=== PATIENT | female | born 1985 | race Asian ===

== ENCOUNTER 2017-08-08 01:10 | Inpatient (IN) | payer SELFPAY ==
[~2017-08-08] VITALS: Ht 160 cm; Wt 63.5 kg
[2017-08-08] MEDS: LR 1,000 ML IV SCH ×4 (01:40→22:10)
[2017-08-08] MEDS ORDERED: CEFAZOLIN 2 GM IVPB PREMIX 50 ML IV ONE (02:00)
[2017-08-08 02:30] LABS: BASOPHILS % (AUTO) 0.3 % (0.0-2.0); EOSINOPHILS % (AUTO) 0.5 % (0.0-4.0); HEMATOCRIT 37.7 % (36-48); HEMOGLOBIN 12.6 g/dL (12.0-16.0); LYMPHOCYTES # (AUTO) 3.2 K/uL (1.0-5.5); LYMPHOCYTES % (AUTO) 36.7 % (20.5-51.5); MEAN CORPUSCULAR HEMOGLOBIN 30 pg (27-31); MEAN CORPUSCULAR HGB CONC 34 % (32-36); MEAN CORPUSCULAR VOLUME 91 fL (79.0-98.0); MONOCYTES # (AUTO) 0.6 K/uL (0.0-1.0); NEUTROPHILS % (AUTO) 55.5 % (40.0-70.0); PLATELET COUNT (AUTO) 129 K/uL (130-430); RED BLOOD CELL COUNT(AUTO) 4.16 MIL/uL (4.2-6.2); RED CELL DISTRIBUTION WIDTH 12.7 % (9.0-15.0); WHITE BLOOD COUNT (AUTO) 8.8 K/uL (4.8-10.8)
[2017-08-08] MEDS ORDERED: OXYTOCIN/NORMAL SALINE 1,000 ML IV ONE (02:51)
[2017-08-08] MEDS ORDERED: BISACODYL 10 MG/SUPPOSITORY RC PRN (03:00)
[2017-08-08] MEDS ORDERED: ACETAMINOPHEN 325 MG TABLET PO PRN (03:00)
[2017-08-08] MEDS ORDERED: HYDROcodone/ACETAMIN 5-325 MG TAB (NORCO/ VICODIN) PO PRN ×2 (03:00)
[2017-08-08] MEDS ORDERED: ANUSOL 1 EA SUPP.RECT (PREPARATION H) RC PRN (03:00)
[2017-08-08] MEDS ORDERED: LANOLIN 7 GM OINT. TP PRN (03:00)
[2017-08-08] MEDS ORDERED: RHO(D) IMMUNE GLOBULIN/MALTOSE 1500 UNITS/1.3 ML (WINHRO) IM PRN (03:00)
[2017-08-08] MEDS ORDERED: TEMAZEPAM 15 MG CAPSULE PO PRN (03:00)
[2017-08-08] MEDS ORDERED: SENNOSIDES/DOCUSATE SODIUM 1 TAB TABLET(SENOKOT-S) PO PRN (03:00)
[2017-08-08] MEDS ORDERED: MEASLES,MUMPS&RUBELLA VACC/PF 12500 UNIT/0.5 ML VIAL SUBQ PRN (03:00)
[2017-08-08] MEDS ORDERED: KETOROLAC TROMETHAMINE 30 MG VIAL IVP PRN (03:30)
[2017-08-08] MEDS ORDERED: fentaNYL CITRATE/PF 100 MCG/2 ML AMP IVP PRN ×2 (03:30)
[2017-08-08] MEDS ORDERED: NALOXONE HCL 0.4 MG/ML AMP (NARCAN) IVP PRN ×2 (03:45)
[2017-08-08] MEDS ORDERED: ONDANSETRON HCL 4 MG/2 ML VIAL IVP PRN (03:45)
[2017-08-08] MEDS ORDERED: KETOROLAC TROMETHAMINE 60 MG/2 ML VIAL IM PRN (03:45)
[2017-08-08] MEDS ORDERED: MIDAZOLAM HCL 5 MG/ML VIAL (VERSED) IV ONE (03:45)
[2017-08-08] MEDS ORDERED: OXYTOCIN 10 UNIT/ML VIAL IV ONE (03:45)
[2017-08-08] MEDS ORDERED: MEPERIDINE HCL/PF 100 MG/ML AMP IM ONE (03:45)
[2017-08-08] MEDS ORDERED: MORPHINE SULFATE 10MG/10ML PF AMP EP ONE (03:45)
[2017-08-08] MEDS ORDERED: NALBUPHINE HCL 10 MG/ML AMP IVP PRN (03:45)
[2017-08-08] MEDS ORDERED: NS IRRIG SOLN 1000 ML IR ONE (03:45)
[2017-08-08] MEDS ORDERED: BUPIVACAINE /DEX PF 0.75% SPINAL 2 ML AMP INJ ONE (03:45)
[2017-08-08] MEDS ORDERED: LR 1,000 ML IV.SOLN IV ONE (03:45)
[2017-08-08] MEDS ORDERED: MORPHINE SULFATE 10MG/10ML PF AMP SP SCH (03:45)
[2017-08-08] MEDS ORDERED: fentaNYL CITRATE/PF 100 MCG/2 ML AMP ONE (04:20)
[2017-08-08] MEDS: IBUPROFEN 600 MG TABLET PO SCH ×2 (12:33→17:57)
[2017-08-08] MEDS: DIPHENHYDRAMINE INJ 50 MG/ML VIAL IVP PRN ×2 (17:04→23:03)
[2017-08-08 23:25] VITALS: BP_SYST 122
[2017-08-09] MEDS: DOCUSATE SODIUM 100 MG CAPSULE PO PRN (00:12)
[2017-08-09] MEDS: IBUPROFEN 600 MG TABLET PO SCH ×4 (00:12→18:12)
[2017-08-09 07:04] LABS: EOSINOPHILS # (AUTO) 0.1 K/uL (0.0-0.4); EOSINOPHILS % (AUTO) 0.5 % (0.0-4.0); HEMOGLOBIN 10.3 g/dL (12.0-16.0); LYMPHOCYTES # (AUTO) 2.5 K/uL (1.0-5.5); LYMPHOCYTES % (AUTO) 23.5 % (20.5-51.5); MEAN CORPUSCULAR HEMOGLOBIN 30 pg (27-31); MEAN CORPUSCULAR HGB CONC 33 % (32-36); MEAN CORPUSCULAR VOLUME 90 fL (79.0-98.0); MONOCYTES # (AUTO) 0.7 K/uL (0.0-1.0); MONOCYTES % (AUTO) 6.8 % (1.7-9.3); NEUTROPHILS # (AUTO) 7.3 K/uL (1.8-7.7); NEUTROPHILS % (AUTO) 69.2 % (40.0-70.0); PLATELET COUNT (AUTO) 132 K/uL (130-430); RED BLOOD CELL COUNT(AUTO) 3.43 MIL/uL (4.2-6.2); RED CELL DISTRIBUTION WIDTH 12.6 % (9.0-15.0); WHITE BLOOD COUNT (AUTO) 10.6 K/uL (4.8-10.8)
[2017-08-09] MEDS: SIMETHICONE 80 MG TAB.CHEW PO PRN (12:56)
[2017-08-10] MEDS: IBUPROFEN 600 MG TABLET PO SCH ×3 (00:02→12:10)
[2017-08-10] MEDS ORDERED: MILK OF MAGNESIA 30 ML UDC PO PRN (08:45)
[2017-08-10] MEDS: DOCUSATE SODIUM 100 MG CAPSULE PO PRN (09:01)
[2017-08-11] MEDS: IBUPROFEN 600 MG TABLET PO SCH ×4 (00:03→17:30)
[2017-08-11] MEDS: SIMETHICONE 80 MG TAB.CHEW PO PRN (12:12)
[2017-08-11] MEDS: DOCUSATE SODIUM 100 MG CAPSULE PO PRN (12:12)
== END 2017-08-11 17:40 | disposition home or self-care (01) | DRG 766 ==
LOC: SPU 01:10
PROVIDERS: ADMIT Obstetrics & Gynecology; ATTEND Obstetrics & Gynecology
PROC: 10D00Z1 Extraction of Products of Conception, Low, Open Approach (ICD-10-PCS; principal; 2017-08-08 02:30)
DX: O34.211 Maternal care for low transverse scar from previous cesarean delivery (principal); O77.0 Labor and delivery complicated by meconium in amniotic fluid; Z37.0 Single live birth; Z3A.38 38 weeks gestation of pregnancy
CPT/HCPCS: 36415; 85025; 86592; 86886; 86900; 86901; 94760; J0690; J1200; J2175; J2250; J2274; J2590; J3010; J3490; J7120